=== PATIENT | male | born 1995 | race Hispanic/Latino ===

== ENCOUNTER 2022-05-14 17:26 | Emergency (ER) | payer OTHER ==
[~2022-05-14] VITALS: Ht 175.3 cm; Wt 72.6 kg
[2022-05-14 17:31] VITALS: BP 112/72
[2022-05-14] MEDS ORDERED: OSEL75 PO (18:44)
== END 2022-05-14 18:57 | disposition home or self-care (01) ==
LOC: EDH 17:26
DX: J10.1 Influenza due to other identified influenza virus with other respiratory manifestations (principal); Z20.822 Contact with and (suspected) exposure to COVID-19
CPT/HCPCS: 99284; 71045; 87635; 87880; 87804 ×2; C9803